=== PATIENT | female | born 1955 | race African-American/Black ===

== ENCOUNTER 2020-06-09 00:19 | Emergency (ER) | payer MEDICARE, MEDICAID ==
[~2020-06-09] VITALS: Ht 172.7 cm; Wt 118.0 kg
[~2020-06-09 00:19] MED LIST: ASPI-867 PO; BENA20TA10 PO; BENAZEPRIL PO; HCTZ PO; LEVOTHYROXINE PO; NAPROXEN PO; OMEP20CA4 PO
[2020-06-09] MEDS ORDERED: ASPIRIN 81MG TABLET PO ONE (00:45)
[2020-06-09 01:08] LABS: BASOPHILS % 1.2 % (0.0-2.0); EOSINOPHILS % 5.1 % (0.0-5.0); HEMATOCRIT. 43.6 % (36.0-48.0); HEMOGLOBIN. 14.5 g/dL (12.0-16.0); LYMPHOCYTES % 29.2 % (20.0-50.0); MEAN CORPUSCULAR HEMOGLOBIN 30.4 pg (28.0-32.0); MEAN CORPUSCULAR VOLUME 91.6 fL (81.0-99.0); MEAN PLATELET VOLUME 7.9 fl (7.4-10.4); MONOCYTES % 7.6 % (2.0-8.0); NEUTROPHILS % 56.9 % (40.0-76.0); PLATELET 341 x1000/uL (130-400); RED BLOOD CELL COUNT 4.76 mill/uL (4.2-5.4)
[2020-06-09 01:16] LABS: CHLORIDE 107 mEq/L (98-107)
[2020-06-09 01:25] LABS: T4 FREE 1.35 ng/dL (0.76-1.46)
[2020-06-09 04:21] VITALS: BP 156/74
== END 2020-06-09 04:27 | disposition home or self-care (01) ==
LOC: ER 00:19
DX: R07.9 Chest pain, unspecified (principal); I10 Essential (primary) hypertension; E03.9 Hypothyroidism, unspecified; Z79.82 Long term (current) use of aspirin; Z98.890 Other specified postprocedural states
CPT/HCPCS: 36415; 71045; 80053; 83880; 84439; 84443; 84484; 85025; 85379; 93005; 99285

== ENCOUNTER 2021-04-17 21:51 | Emergency (ER) | payer MEDICARE, MEDICAID ==
[~2021-04-17] VITALS: Ht 172.7 cm; Wt 113.0 kg
[2021-04-17 22:29] VITALS: BP 174/93
[2021-04-17 23:48] LABS: EOSINOPHILS % 4.7 % (0.0-5.0); HEMATOCRIT. 44.4 % (36.0-48.0); HEMOGLOBIN. 14.7 g/dL (12.0-16.0); LYMPHOCYTES % 25.6 % (20.0-50.0); MEAN CORPUSCULAR HEMOGLOBIN 30.5 pg (28.0-32.0); MEAN CORPUSCULAR VOLUME 92.3 fL (81.0-99.0); MEAN PLATELET VOLUME 7.6 fl (7.4-10.4); MONOCYTES % 8.2 % (2.0-8.0); NEUTROPHILS % 60.5 % (40.0-76.0); PLATELET 398 x1000/uL (130-400); RED BLOOD CELL COUNT 4.81 mill/uL (4.2-5.4); RED CELL DISTRIBUTION WIDTH 13.8 % (11.6-14.6)
[2021-04-17 23:52] LABS: CHLORIDE 106 mEq/L (98-107)
[2021-04-18] MEDS ORDERED: BACL-141 MT (01:07)
[2021-04-18] MEDS ORDERED: IBUP-2028 MT (01:07)
== END 2021-04-18 01:38 | disposition home or self-care (01) ==
LOC: ER 21:51
DX: M54.12 Radiculopathy, cervical region (principal); I10 Essential (primary) hypertension; E03.9 Hypothyroidism, unspecified; Z98.890 Other specified postprocedural states; Z79.899 Other long term (current) drug therapy
CPT/HCPCS: 36415; 71045; 80053; 83880; 84484; 85025; 93005; 99285

== ENCOUNTER 2021-12-03 00:25 | Emergency (ER) | payer MEDICARE, MEDICAID ==
[~2021-12-03] VITALS: Ht 172.7 cm; Wt 112.1 kg
[~2021-12-03 00:25] MED LIST changes: +BACL-141 MT; +BENA-8 PO; -BENA20TA10 PO; +IBUP-2028 MT
[2021-12-03 01:10] VITALS: BP 183/101
[2021-12-03 01:52] LABS: EOSINOPHILS % 5.4 % (0.0-5.0); HEMOGLOBIN. 14.7 g/dL (12.0-16.0); LYMPHOCYTES % 31.6 % (20.0-50.0); MEAN CORPUSCULAR HEMOGLOBIN 31.1 pg (28.0-32.0); MEAN CORPUSCULAR VOLUME 90.6 fL (81.0-99.0); MEAN PLATELET VOLUME 7.3 fl (7.4-10.4); MONOCYTES % 8.1 % (2.0-8.0); NEUTROPHILS % 53.9 % (40.0-76.0); PLATELET 412 x1000/uL (130-400); RED BLOOD CELL COUNT 4.75 mill/uL (4.2-5.4); RED CELL DISTRIBUTION WIDTH 14.1 % (11.6-14.6)
[2021-12-03 02:01] LABS: CHLORIDE 105 mEq/L (98-107)
[2021-12-03] MEDS ORDERED: FAMOTIDINE 20MG TABLET PO ONE (05:00)
== END 2021-12-03 05:11 | disposition home or self-care (01) ==
LOC: ER 00:25
DX: R00.2 Palpitations (principal); K21.9 Gastro-esophageal reflux disease without esophagitis; I10 Essential (primary) hypertension
CPT/HCPCS: 36415; 71045; 80053; 83880; 84484; 85025; 93005; 99285

== ENCOUNTER 2023-12-31 23:41 | Emergency (ER) | payer MEDICAID, MEDICARE ==
[~2023-12-31] VITALS: Ht 170.2 cm; Wt 118.0 kg
[2024-01-01 00:10] VITALS: O2SAT 100
[2024-01-01 00:24] LABS: HEMOGLOBIN 14.7 g/dL (12.0-16.0); MEAN CORPUSCULAR HEMOGLOBIN 31.5 pg (28.0-32.0); MEAN CORPUSCULAR HGB CONC 34.2 g/dL (31.0-37.0); MEAN CORPUSCULAR VOLUME 92.4 fL (81.0-99.0); PLATELET 381 x1000/uL (130-400); RED BLOOD CELL COUNT 4.65 mill/uL (4.2-5.4); RED CELL DISTRIBUTION WIDTH 13.7 % (11.6-14.6); WHITE BLOOD COUNT 5.1 x1000/uL (4.5-11.0)
[2024-01-01 00:26] LABS: CHLORIDE 106 mEq/L (98-107); POTASSIUM 3.6 mEq/L (3.5-5.1); SODIUM 139 mEq/L (136-145)
[2024-01-01 00:27] LABS: CARBON DIOXIDE 28 mEq/L (21-32)
[2024-01-01 00:28] LABS: CALCIUM 11.2 mg/dL (8.7-10.4)
[2024-01-01] MEDS ORDERED: LISINOPRIL 10MG TABLET PO NR (00:30)
[2024-01-01] MEDS ORDERED: BENAZEPRIL 10MG TABLET PO ONE (00:30)
[2024-01-01 00:32] LABS: CREATININE 0.9 mg/dL (0.6-1.0); GLUCOSE 99 mg/dL (70-105); UREA NITROGEN BLOOD 15 mg/dL (9-23)
[2024-01-01] MEDS: LISINOPRIL 10MG TABLET PO NR (01:06)
[2024-01-01] MEDS: HYDROCHLOROTHIAZIDE 25MG TABLET PO ONE (01:06)
[2024-01-01] MEDS: ACETAMINOPHEN 500MG TABLET PO NR (01:06)
[2024-01-01] MEDS: HYDRALAZINE HCL 25MG TABLET PO ONE (01:45)
[2024-01-01 02:42] VITALS: BP 172/101; PULSE 77; RESP 18; TEMP 36.55848; O2SAT 100
== END 2024-01-01 02:43 | disposition home or self-care (01) ==
LOC: ER 23:41
DX: I10 Essential (primary) hypertension (principal); E03.9 Hypothyroidism, unspecified; Z79.899 Other long term (current) drug therapy
CPT/HCPCS: 36415; 80048; 85027; 99284

== ENCOUNTER 2024-05-07 00:49 | Emergency (ER) | payer MEDICARE ==
[~2024-05-07] VITALS: Ht 170.2 cm; Wt 120.0 kg
[2024-05-07 01:15] VITALS: TEMP 36.6; O2SAT 99
[2024-05-07] MEDS: ACETAMINOPHEN 325MG TABLET PO ONE (02:09)
[2024-05-07] MEDS ORDERED: NAPR-1176 MT (03:22)
[2024-05-07] MEDS ORDERED: LIDO700A15 TP (03:22)
[2024-05-07 03:40] VITALS: BP 185/114; PULSE 74; RESP 16; O2SAT 99
== END 2024-05-07 03:42 | disposition home or self-care (01) ==
LOC: ER 00:49
DX: R51.9 Headache, unspecified (principal); I10 Essential (primary) hypertension; Z79.82 Long term (current) use of aspirin; Z79.899 Other long term (current) drug therapy; Z86.39 Personal history of other endocrine, nutritional and metabolic disease
CPT/HCPCS: 99284